=== PATIENT | male | born 1980 | race Caucasian/White ===

== ENCOUNTER 2016-10-02 23:21 | Emergency (ER) | payer BC ==
[2016-10-03] MEDS ORDERED: OXYCODONE-ACETAMINOPHEN 5-325 MG TABLET PO ONE (00:49)
[2016-10-03] MEDS ORDERED: ONDANSETRON 4 MG TAB.RAPDIS PO ONE (00:49)
--- NOTE | 2016-10-03 00:51 | ER Document Report ---
HPI - HPI Patient complains to provider of: left knee injury Pain Level: 5 Context: Patient is a 36-year-old male that comes to the emergency department with chief complaint of left knee injury, patient was planks softball and states that he dove for a hit ball and ended up landing with force on his knee on the ground. He reports a significant amount of pain to the left knee, he denies any other injuries. He denies head injury. - DERM Skin Color: Normal Past Medical History - General Information source: Patient - Social History Smoking Status: Never Smoker Chew tobacco use (# tins/day): No Frequency of alcohol use: None Drug Abuse: None Lives with: Family Family History: Reviewed & Not Pertinent Patient has suicidal ideation: No Patient has homicidal ideation: No - Medical History Medical History: Negative Renal/ Medical History: Denies: Hx Peritoneal Dialysis Surgical Hx: Negative - Immunizations Immunizations up to date: Yes Hx Diphtheria, Pertussis, Tetanus Vaccination: Yes Vertical Provider Document - CONSTITUTIONAL General Appearance: Mild Distress - Patient appears to be uncomfortable, gingerly protecting his knee - INFECTION CONTROL TRAVEL OUTSIDE OF THE [place] IN LAST 30 DAYS: No - HEENT HEENT: Atraumatic, Normal ENT Exam, Normocephalic - RESPIRATORY Respiratory: Breath Sounds Normal, No Respiratory Distress O2 Sat by Pulse Oximetry: 98 - CARDIOVASCULAR Cardiovascular: Regular Rate, Regular Rhythm - GI/ABDOMEN Gastrointestinal: Abdomen Soft, Abdomen Non-Tender - BACK Back: Normal Inspection - MUSCULOSKELETAL/EXTREMETIES Musculoskeletal/Extremeties: Tender - Tenderness over the mid to lower aspect of the left anterior knee, posterior exam unremarkable, distal examination unremarkable, tibia, femur, hip unremarkable Course - Re-evaluation Re-evalutation: Patient appeared to be in significant pain with tenderness over the mid to lower part of the knee on exam, however x-ray is normal, no neurovascular deficits, vision can still straighten and flex the knee. Difficult to fully examine because of the pain, patient placed in the immobilizer, referred orthopedics, discussed treatment course, return precautions, patient states understanding and agreement. - Vital Signs Vital signs: Temp Pulse Resp BP Pulse Ox 97.8 F 88 18 136/83 H 98 10/02/16 23:23 10/02/16 23:23 10/02/16 23:23 10/02/16 23:23 10/02/16 23:23 - Diagnostic Test Radiology reviewed: Image reviewed, Reports reviewed Procedures - Immobilization left knee Pre-Proc Neuro Vasc Exam: Normal Immobilizer type: Knee immobilizer Performed by: PCT Post-Proc Neuro Vasc Exam: Normal Alignment checked and good: Yes Discharge - Discharge Clinical Impression: Left knee injury Qualifiers: Encounter type: initial encounter Qualified Code(s): S89.92XA - Unspecified injury of left lower leg, initial encounter Condition: Stable Disposition: HOME, SELF-CARE Additional Instructions: The x-ray is normal. It is too early to easily examine the knee to indicate the abnormality. This could be just a contusion with soft tissue injury, although this could be more. Follow up with Orthopedics for additional evaluation and management. Wear the knee immobilizer, ice your knee 3-4 times a day, elevate, take the prescribed anti-inflammatory. Return to the ED for any concerning symptoms. Prescriptions: Naproxen 500 mg PO BID #20 tablet Referrals: PASHA LLOYD MD [ACTIVE STAFF] - Follow up in 3-5 days
[2016-10-03 03:20] VITALS: BP 123/63
== END 2016-10-03 03:18 | disposition home or self-care (01) ==
LOC: ER 23:21
DX: S89.92XA Unspecified injury of left lower leg, initial encounter (principal); W19.XXXA Unspecified fall, initial encounter
CPT/HCPCS: 99283; 73562; L1830; S0119